=== PATIENT | male | born 1970 | race Caucasian/White ===

== ENCOUNTER 2022-03-05 13:28 | Emergency (ER) | payer OTHER, SELFPAY ==
--- NOTE | ~2022-03-05 | XR_ITS ---
EXAMINATION: XR CHEST CLINICAL INFORMATION: Chest pain COMPARISON: 10/09/2015 TECHNIQUE: 2 views of the chest were obtained. FINDINGS: No focal consolidation, pulmonary edema, or pleural effusion. Stable cardiomediastinal silhouette. XR/XR chest 2V IMPRESSION: No acute cardiopulmonary findings.
[2022-03-05 13:55] VITALS: BP 117/74; PULSE 80; RESP 16; TEMP 36.6; O2SAT 95; BMI 28.8
--- NOTE | 2022-03-05 13:58 | ECG_ITS ---
Test Reason : chest pain Blood Pressure : / mmHG Vent. Rate : 077 BPM Atrial Rate : 077 BPM P-R Int : 148 ms QRS Dur : 098 ms QT Int : 358 ms P-R-T Axes : 043 023 014 degrees QTc Int : 405 ms Normal sinus rhythm Normal ECG When compared with ECG of 09-OCT-2015 20:02, No significant change was found Referred By: Generic ED Physician Electronically Signed By:PAXTON HO
[2022-03-05 14:24] LABS: MANUAL DIFF FLAG NO
[2022-03-05 14:26] LABS: Basophils Absolute Auto 0.1 X10*3/uL (0.0-0.2); Basophils Percent Auto 0.9 % (0-2); Eosinophils Absolute Auto 0.3 X10*3/uL (0.0-0.4); Hematocrit 41.2 % (42.0-52.0); Hemoglobin 13.4 g/dl (14.0-18.0); Imm Gran Abs Auto 0.01 X10*3/uL (0.00-0.03); Imm Gran Pct Auto 0.2 % (0.0-0.4); Lymphocytes Absolute Auto 2.1 X10*3/uL (1.2-4.9); Lymphocytes Percent Auto 39.6 % (20-40); Mean Corpuscular HGB Conc 32.5 g/dl (31.0-36.0); Mean Corpuscular Hemoglobin 28.8 pg (27.0-33.0); Mean Corpuscular Volume 88.4 fL (80.0-98.0); Mean Platelet Volume 12.3 fL (9.4-12.4); Monocytes Absolute Auto 0.4 X10*3/uL (0.1-1.2); Monocytes Percent Auto 8.2 % (2-11); Neutrophils Absolute Auto 2.5 x10*3/uL (2.0-8.3); Neutrophils Percent Auto 46.1 % (45-73); Platelet Count 215 X10*3/uL (160-400); Red Blood Count 4.66 X10*6/uL (4.60-5.80); Red Cell Distribution Width 13.8 % (11.0-16.0); White Blood Count 5.4 X10*3/uL (4.8-10.8)
[2022-03-05 14:48] LABS: Troponin-I High Sensitivity < 3.5 ng/L (<3.5-35.0)
[2022-03-05 14:50] LABS: Alanine Aminotransferase 27 U/L (0-40); Albumin Level 4.1 g/dL (3.5-5.0); Alkaline Phosphatase 44 U/L (39-117); Anion Gap 16 (12-20); Aspartate Amino Transferase 22 U/L (5-37); Bilirubin Direct < 0.2 mg/dL (0.0-0.5); Bilirubin Total < 0.2 mg/dL (0.0-1.0); Blood Urea Nitrogen 19 mg/dL (9-16); Calcium 9.3 mg/dL (8.4-10.2); Carbon Dioxide 24 mmol/L (22-29); Chloride 105 mmol/L (96-108); Creatinine Clr Calc Pharmacy 68.3; Estimated Glomerular Filt Rate 55; Glucose Random 136 mg/dL (60-115); Sodium 141 mmol/L (135-145); Total Protein 6.9 g/dL (6.5-8.0)
== END 2022-03-05 16:40 | disposition left against medical advice (07) ==
PROVIDERS: Emergency Provider Emergency Medicine
DX: R07.9 Chest pain, unspecified (principal); R10.9 Unspecified abdominal pain
CPT/HCPCS: 36415; 71046; 80048; 80076; 84484; 85025; 93005; 99283

== ENCOUNTER 2025-01-11 07:26 | Outpatient (AMB) | payer OTHER, SELFPAY ==
--- OUTSIDE RECORDS SUMMARY | 2025-01-11 07:29 | XMS_ITS | Clinical Summary ---
Author Organization Patient Business Ser [facility] Address [address] [place] [address] Care Team Providers Care Glass Edger Name Role Phone Yoanna Madden MD Primary Care Pr ovider Allergies Active Allergy Reactions Criticality Noted Date Comments Other 06/27/2013 Seasonal Allergies Medications polyethylene glycol (Golytely) 236-22.74-6.74 -5.86 gram solution Take 4L by mouth once for one dose. May substitue any PEG. Starting at 6PM the night before your procedure drink 1 8oz glasses at your own pace until you complete half of the gallon. Finish 2nd half of the gallon 5 hours before your procedure. 4000 mL 5 Active bisacodyL (DULCOLAX) 5 mg EC tablet Take 2 tablets by mouth right before beginning bowel prep. See instructions provided by the office 2 tablet 5 Active Active Problems Problem Noted Date Diagnosed Date Hyperlipidemia 04/08/2022 Pre-diabetes 03/31/2022 Central sleep apnea without Stefan-Singh respir ation 05/01/2019 Pain in joint involving multiple sites 9 Sleep apnea, obstructive 11/06/2015 Overview (05/22/2024): UNTREATED (September 2021) Dx around 2003, not been compliant with CPAP [facility] PSG 01/11/2005 Wt 180# SE 94 REM 16%; RDI 10, REM RDI 14.8, average oxygen saturation 95% (lowest 87%) CPAP titration PSG 11/04/2005 CPAP @ 7 resolved the A[facility] SMS Home Sleep Apnea Test: Date ; Wt 185#; BMI 28; CARIDAD 31, AI 13; HI 18; Unclassified apneas 0; Obstructive apneas 29; Central apneas 47; Mixed apneas 0; hypopneas 105; average oxygen saturation 93% (lowest 84% without saturations <88% for 5% or more of study) - Obstructive Sleep Apnea - severe; mostly hypopneas + central apneas; without sleep related hypoventilation by 2019 home sleep apnea test. Immunizations Name Administration Dates Next Due Influenza trivalent, 0.5mL, preservative free (Fluarix; FluLaval; Fluzone) ages 6mo and older (Afluria) 3 years and older 02/28/2024,02/19/2021,02/22/2019,2017,02/19/2016,06/27/2013 Influenza, Unspecified 03/02/2022,03/24/2014 Tdap Tetanus diptheria acell ular pertussis (Boostrix; Adacel) 7yo and older 02/28/2024,06/27/2013 Surgical History Surgery Date Site/Laterality Comments HERNIA REPAIR PROCEDURE: HISTORICAL HERNIA REPAIR/ING; COMMENT: x2 CHOLECYSTECTOMY PROCEDURE: HISTORICAL CHOLECYSTECTOMY Family History Medical History Relation Name Comments Asthma Brother 1 No Known Problems Brother 2 No Known Problems Brother 3 Asthma Daughter Hypertension Father DM, HLD, [place] at 49, asthma No Known Problems Maternal Grandfather No Known Problems Maternal Grandmother Hypertension Mother DM, asthma No Known Problems Paternal Grandfather Heart attack Paternal Grandmother Relation Name Status Comments Brother 1 Alive Brother 2 Alive Brother 3 Alive Daughter Alive Father Alive Maternal Grandfather Maternal Grandmother Alive Mother Alive Paternal Grandfather Paternal Grandmother Social History Tobacco Use Types Packs/Day Years Used Date Smoking Tobacco: Never Smokeless Tobacco: Never Alcohol Use Standard Drinks/Week Comments Yes 2 (1 standard drink = 0.6 oz pur e alcohol) Sex and Gender Information Value Date Recorded Sex Assigned at Not on file Legal Sex Male 6:07 AM EDT Gender Identity Not on file Sexual Orientation Not on file Obstetrics History Last Filed Vital Signs Vital Sign Reading Time Taken Comments Blood Pressure 110/70 02/28/2024 4:36 PM EDT Pulse 69 02/28/2024 4:36 PM EDT Temperature - - Respiratory Rate - - Oxygen Saturation - - Inhaled Oxygen Concentration - - Weight 92.3 kg (203 lb 8 oz) 02/28/2024 4:36 PM EDT Height 172.7 cm (5' 8 ) 02/28/2024 4:36 PM EDT Body Mass Index 30.94 02/28/2024 4:36 PM EDT Plan of Treatment Health Maintenance Due Date Last Done Comments Hepatitis B Vaccines (1 of 3 - 19+ 3-dose series) 1990 Colorectal Cancer Screening: Colonoscopy 02/05/2021 Social Influencers of Health Screening 02/05/2021 Pneumococcal Vaccine: 50+ Years (1 of 1 - PCV) 2021 Zoster Vaccines (1 of 2) 2021 COVID-19 Vaccine (2 - season) 2024 09/12/2020 Depression Screening 06/07/2024 Influenza Vaccine (#1) 2025 , 03/02/2022, 02/19/2021, Additional history exists Cholesterol Screening (Lipid Panel) 03/30/2027 03/30/2022 DTaP,Tdap,and Td Vaccines (3 - Td or Tdap) 02/27/2034 02/28/2024, 06/27/2013 HIV Screening Completed 06/27/2013 Hepatitis C Screening Completed 06/27/2013 HIB Vaccines Aged Out No longer eligi ble based on patient's age to complete this topic HPV Vaccines Aged Out No longer eligi ble based on patient's age to complete this topic Hepatitis A Vaccines Aged Out No long er eligible based on patient's age to complete this topic IPV Vaccines Aged Out No longer eligi ble based on patient's age to complete this topic MMR Vaccines Aged Out No longer eligi ble based on patient's age to complete this topic Meningococcal ACWY Vaccine Aged Out N o longer eligible based on patient's age to complete this topic Meningococcal B Vaccine Aged Out No l onger eligible based on patient's age to complete this topic RSV Immunization Patients Under 20 months Aged Out No longer eligible based on patient's age to complete this topic Varicella Vaccines Aged Out No longer eligible based on patient's age to complete this topic Procedures Procedure Name Priority Date/Time Associated Diagnosis Comments LIPID PANEL Routine 03/30/2022 HEPATITIS C SCREENING Routine 06/27/2013 HIV SCREENING Routine 06/27/2013 from Last 3 Months or Most Recently Relevant to Health Maintenance Results * (ABNORMAL) Lipid panel (03/30/2022) LDL/HDL Ratio 4 0 - 4 Triglycerides 120 0 - 150 mg/dL Cholesterol 240(A) 0 - 200 mg/dL HDL 57 >=40 mg/dL LDL Cholesterol 159(A) 0 - 100 mg/dL Blood Venous blood specimen / Unknown Historical Provider LAB BLOOD ORDERABLES Vonda l Result * HIV Screening (06/27/2013) HIV Screening Abstracted [facility] Provider HEALTH MAINTENANCE Final Result * Hepatitis C Screening (06/27/2013) Hepatitis C Screening Abstracted Historical Provider HEALTH MAINTENANCE Final Result from Last 3 Months or Most Recently Relevant to Health Maintenance Insurance [facility] Care Teams Glass Edger Relationship Specialty Start Date End Date Yoanna Madden MD [address] [facility], [place] PCP - General Internal Medicine 03/30/22
--- OUTSIDE RECORDS SUMMARY | 2025-01-11 07:29 | XMS_ITS | Patient Health Record ---
Author Organization [facility] Address [address] [place] [id number] Care Team Providers Care Taping Supervisor Name Role Phone Jian Dewitt Unavailable [phone] Reason For Referral No Information Plan Of Treatment No Information
--- OUTSIDE RECORDS SUMMARY | 2025-01-11 07:29 | XMS_ITS ---
Author Name [facility] Organization Unknown Care Team Organization Name Specialty Phone Email Start Date End Da te [facility] Ellie Granados Primary Care 10/12/2022 01/24/20 [facility] Sophia, PROVIDER Primary Care 04/14/202201/05
--- NOTE | 2025-01-11 07:37 | MHC.PC.OV ---
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 Organizational Development Director Required: No Accompanied by: Self / Same As Patient Allergies FRESH FRUIT Allergy (Mild, Uncoded 01/11/25 07:47) ITCHY TROAT Medication List - Last Reconciled 01/11/25 by Petty Prado MD No Known Home Meds Tobacco use date assessed: 01/11/25 Dental Screening Dental Screen Date: 01/11/25 Did you have a dental visit in the last 12 months?: Yes Did you have a dental problem in the last 6 months where you did not have access to dental care?: No Was dental information given to patient?: Patient has dentist HPI HPI Comments History of Present Illness Details The patient is a 54-year-old male presenting for a wellness visit and preventative care. Has never had a colonoscopy. Tdap vaccine placement 2 years ago as per patient. Complains of left foot pain that has been present for about 2 years. No previous trauma. Has mild recurrent major depression with a PHQ-9 of 4 but is able to handle it without counseling or medications. The patient has a history of anemia identified in 2021 during laboratory evaluations. The patient reports no current symptoms related to anemia and maintains normal urinary and bowel functions. Family history is significant for diabetes mellitus and hyperlipidemia, with both parents affected by these conditions. The patient does not smoke and consumes alcohol occasionally, approximately two to three times a week. [facility] Surgical History History of cholecystectomy History of hernia surgery Family History Father Diabetes Hypertension Hypercholesterolemia Mother Diabetes Hypercholesterolemia Social History (Updated 01/11/25 @ 07:51 by Petty Prado MD) Housing: House Alcohol intake: current Alcohol intake frequency: a few times a week Alcohol type: beer Patient Tobacco Use Status: Never used Tobacco e-Cigarette/Vaping Use: Never Used Second Hand Smoke Exposure: No service: No Current occupational status: employed Current occupational exposures/hazards: No Cognitive needs: No Hearing needs: No Vision needs: Yes Questionnaire PHQ-9 Over the last 2 weeks, how often have you been bothered by any of the following problems? 1. Little interest or pleasure in doing things: several days 2. Feeling down, depressed, or hopeless: not at all 3. Trouble falling or staying asleep, or sleeping too much: not at all 4. Feeling tired or having little energy: nearly every day 5. Poor appetite or overeating: not at all 6. Feeling bad about yourself - or that you are a failure or have let yourself or your family down: not at all 7. Trouble concentrating on things, such as reading the newspaper or watching television: not at all 8. Moving or speaking so slowly that other people could have noticed. Or the opposite - being so fidgety or restless that you have been moving around a lot more than usual: not at all 9. Thoughts that you would be better off or of hurting yourself in some way: not at all Total score: 4 Depression Screening Interpretation: Positive Depression Screening Follow-up: Existing condition and Follow-up Visit Requested Depression Screening Done: Yes 61935 - PHQ-9 Billing: Yes Source: Developed by Drs. Jian Anton, Nettie Peres, Marcial Berry and colleagues, with an educational hawa from [employer]. Thrive Questionnaire Date Thrive assessed: 01/11/25 I am a: Patient What is your living situation today?: I have a steady place to live Within the past 12 months, did the food you bought not last and you didn't have the money to get more?: Never true Within the past 12 months, did you worry whether your food would run out before you got money to buy more?: Never true Do you have trouble paying for medicines?: No Do you have trouble getting transportation to medical appointments?: No Do you have trouble paying your heating and electricity bill?: No Do you have trouble taking care of your child, family member or friend?: No Do you have trouble with day-to-day activities such as bathing, preparing meals, shopping, managing finances, etc.?: No Are you currently unemployed and looking for a job?: No Are you interested in more education?: No Please select the resources that you would like help with: None Currently or been in a relationship where the following occur: No concerns reported THRIVE Score: 0 AUDIT C Alcohol Use Questionnaire (AUDIT-C) 1. How often do you have a drink containing alcohol?: 2-3 times a week 2. How many drinks containing alcohol do you have on a typical day when you are drinking?: 3 or 4 3. How often do you have six or more drinks on one occasion?: Never Total Score: 4 JAYESH-7 AMB Questionnaire JAYESH-7 Date JAYESH - 7 assessed: 01/11/25 Feeling nervous, anxious, or on edge: 0 = Not at all Not being able to stop or control worryin = Not at all Worrying too much about different things: 0 = Not at all Trouble relaxin = Not at all Being so restless that it is hard to sit still: 0 = Not at all Becoming easily annoyed or irritable: 0 = Not at all Feeling afraid as if something awful might happen: 0 = Not at all Total JAYESH-7 score (0-4 normal; 5-9 mild; 10-14 moderate; 15-21 severe): 0 Source: Developed by Drs. Jian Anton, Nettie Peres, Marcial Berry and colleagues, with an educational hawa from [employer]. JAYESH-7 Assessment Billing JAYESH-7 Assessment Tool: JAYESH-7 Assessment 61530 Review of Systems Const All systems reviewed & are unremarkable except as noted in HPI and below Card Denies chest pain at rest, Denies chest pain with activity, Denies edema, Denies irregular heart rhythm, Denies claudication, Denies dyspnea, Denies dyspnea on exertion, Denies orthopnea, Denies paroxysmal nocturnal dyspnea and Denies slow heart rate Resp Denies cough, Denies dyspnea and Denies dyspnea on exertion GI Denies abdominal pain, Denies change in bowel habits, Denies excessive flatus, Denies nausea and Denies vomiting Physical exam (Primary Care) Vital Signs: Last Vital Signs BP 110/80 01/11/25 07:38 BMI result Body Mass Index 30.3 Tobacco/Smoking Status: Tobacco use Status Tobacco use date assessed 01/11/25 01/11/25 07:45 Patient Tobacco Use Status Never used Tobacco 01/11/25 07:45 e-Cigarette/Vaping Use Never Used 01/11/25 07:45 PHQ-9: PHQ-9 Score PHQ-9: Total score 4 01/11/25 07:45 Depression Screening Interpretation: Positive Depression Screening Follow-up: Existing condition and Follow-up Visit Requested Thrive Assessment: Date of Thrive Assessment Date Thrive assessed 01/11/25 01/11/25 07:45 Currently or been in a relationship where the following occur: No concerns reported [facility] Head: Yes normal to inspection, Yes normocephalic and Yes atraumatic Ears: external ears normal Eyes General: appearance normal, both eyes and all related structures Eyelids: Yes eyelids normal Conjunctivae: conjunctivae normal Neck Neck: Yes normal visual inspection and Yes supple Resp Effort & Inspection: normal respiratory effort Auscultation: clear to auscultation bilaterally Cardio Jugular venous distension: no JVD Rate: regular rate Rhythm: regular rhythm Heart sounds: S1 normal heart sound present and S2 normal heart sound present GI Inspection: Yes normal to inspection Palpation (GI): Soft to palpation and nontender Auscultation: normal bowel sounds Skin General skin exam: no rashes or lesions noted Neuro General: no focal motor deficits Extrem General: Yes full ROM Psych Appearance: grossly normal Coding Level of Care Code New Pt Level 3 (27745) New Pt Prev Care 40-64y(18008) Diagnoses Physical exam Z00.00 Left foot pain M79.672 Normocytic anemia D64.9 Mild recurrent major depression F33.0 Additional Codes PHQ-9 - 85559 - PHQ-9 Billing: Yes ([id number]) JAYESH-7 Assessment Billing - JAEYSH-7 Assessment Tool: JAYESH-7 Assessment 14396 ([id number]) Time Spent (min) 31 Assessment & Plan Assessment & Plan (1) Physical exam: Code(s): Z00.00 - Encounter for general adult medical examination without abnormal findings Category: Medical (2) Left foot pain: Code(s): M79.672 - Pain in left foot Category: Medical (3) Normocytic anemia: Code(s): D64.9 - Anemia, unspecified Category: Medical (4) Mild recurrent major depression: Code(s): F33.0 - Major depressive disorder, recurrent, mild Category: Medical Plan The plan includes scheduling a colonoscopy for preventative screening, as the patient was unable to complete this last year due to cancellation. Laboratory tests will be repeated to monitor anemia and assess glucose, renal function, liver function, and lipid profile. Patient was informed and verbally consented to the use of an ambient scribe for clinic note documentation during this visit. Orders: Orders XR foot LT 2V Today M79.672 - Pain in left foot Complete Blood Count Auto Diff Today D64.9 - Anemia, unspecified Comprehensive Lodge. Panel Fast Today Z00.00 - Encounter for general adult medical examination without abnormal findings Lipid Panel Today Z00.00 - Encounter for general adult medical examination without abnormal findings IRON PROFILE Today D64.9 - Anemia, unspecified Referrals Podiatry Referral M79.672 - Pain in left foot Open Access Screening Colonoscopy Referral Z00.00 - Encounter for general adult medical examination without abnormal findings, Z12.12 - Encounter for screening for malignant neoplasm of rectum
[2025-01-11 07:38] VITALS: BP 110/80; BMI 30.3
== END 2025-01-11 08:27 | disposition home or self-care (01) ==
LOC: HO.HMCH 07:27
PROVIDERS: Visit Provider Internal Medicine
DX: Z00.00 Encounter for general adult medical examination without abnormal findings (principal); M79.672 Pain in left foot; D64.9 Anemia, unspecified; F33.0 Major depressive disorder, recurrent, mild

== ENCOUNTER 2025-01-11 07:26 | Outpatient (REF) | payer OTHER, SELFPAY ==
--- NOTE | ~2025-01-11 | XR_ITS ---
EXAMINATION: XR FOOT, LEFT CLINICAL INFORMATION: M79.672 - Pain in left foot COMPARISON: None available. TECHNIQUE: AP, lateral, and oblique views of the left foot. FINDINGS: No fracture, dislocation or suspicious bone lesion. Normal alignment. 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 There is normal plantar arch. There is a bone island within the calcaneus. There is a tiny dorsal calcaneal spur. Normal soft tissues. XR/XR foot LT 2V IMPRESSION: 1. No acute bony abnormalities of the left foot. Electronically signed by: Colby Marcum MD 01/11/2025 08:57 AM EDT
[2025-01-11 08:44] LABS: MANUAL DIFF FLAG NO
[2025-01-11 09:03] LABS: Hematocrit 44.1 % (42.0-52.0); Hemoglobin 15.0 g/dl (14.0-18.0); Imm Gran Abs Auto 0.01 X10*3/uL (0.00-0.03); Imm Gran Pct Auto 0.2 % (0.0-0.4); Lymphocytes Absolute Auto 1.3 X10*3/uL (1.2-4.9); Mean Corpuscular HGB Conc 34.0 g/dl (31.0-36.0); Mean Corpuscular Hemoglobin 28.9 pg (27.0-33.0); Mean Corpuscular Volume 85.0 fL (80.0-98.0); NRBC Abs Auto 0.000 X10*3/uL (0.0-0.012); NRBC Pct Auto 0.0 /100WBC (0.0-0.2); Platelet Count 212 X10*3/uL (160-400); Red Blood Count 5.19 X10*6/uL (4.60-5.80); White Blood Count 4.2 X10*3/uL (4.8-10.8)
[2025-01-11 10:06] LABS: Alanine Aminotransferase 30 U/L (0-40); Albumin Level 4.5 g/dL (3.5-5.0); Alkaline Phosphatase 37 U/L (39-117); Anion Gap 11 (12-20); Aspartate Amino Transferase 29 U/L (5-37); Blood Urea Nitrogen 19 mg/dL (9-16); Calcium 9.4 mg/dL (8.4-10.2); Carbon Dioxide 24 mmol/L (22-29); Chloride 109 mmol/L (96-108); Cholesterol 245 mg/dL (<200); Estimated Glomerular Filt Rate > 60; HDL Cholesterol 51 mg/dL (>40); Iron 118 mcg/dL (45-160); Percent Iron Saturation 52 % (15-50); Potassium 4.0 mmol/L (3.3-5.1); Sodium 140 mmol/L (135-145); Total Iron Binding Capacity 225 mcg/dL (228-428); Total Protein 7.2 g/dL (6.5-8.0); Triglycerides 190 mg/dL (<150); Unsaturated Iron Binding 107 ug/dL
== END 2025-01-11 07:27 | disposition home or self-care (01) ==
LOC: HO.LAB 07:26
PROVIDERS: PCP Internal Medicine; Visit Provider Internal Medicine
DX: Z00.00 Encounter for general adult medical examination without abnormal findings (principal); M79.672 Pain in left foot; D64.9 Anemia, unspecified; F33.0 Major depressive disorder, recurrent, mild; Z13.6 Encounter for screening for cardiovascular disorders; Z13.31 Encounter for screening for depression; Z13.39 Encounter for screening examination for other mental health and behavioral disorders
CPT/HCPCS: 36415; 73620; 80053; 80061; 83540; 85025; 96127

== ENCOUNTER → 2025-01-11 08:45 | Outpatient (BNV) | payer OTHER, SELFPAY | PROVIDERS: PCP Internal Medicine; Visit Provider Radiology Diagnostic Radiology | DX: M79.672 Pain in left foot (principal) | CPT/HCPCS: 73620 ==

== ENCOUNTER 2025-02-09 14:36 | Outpatient (AMB) | payer OTHER, SELFPAY ==
--- NOTE | 2025-02-09 11:34 | MHC.OFFVIS ---
Intake Visit Reasons: New Pt- Left foot pain Allergies FRESH FRUIT Allergy (Mild, Uncoded 01/11/25 07:47) ITCHY TROAT PFSH Surgical History History of cholecystectomy History of hernia surgery Family History Father Diabetes Hypertension Hypercholesterolemia Mother Diabetes Hypercholesterolemia Social History (Updated 01/11/25 @ 07:51 by Petty Prado MD) Housing: House Alcohol intake: current Alcohol intake frequency: a few times a week Alcohol type: beer Patient Tobacco Use Status: Never used Tobacco e-Cigarette/Vaping Use: Never Used Second Hand Smoke Exposure: No service: No Current occupational status: employed Current occupational exposures/hazards: No Cognitive needs: No Hearing needs: No Vision needs: Yes Coding
--- NOTE | 2025-02-09 14:38 | A.OFFVIS_ITS ---
Vital Signs 3 02/09/25 14:42 Height 5 ft 8 in Weight 198 lb BMI 30.1 Intake Visit Reasons: New Pt- Left foot pain Intake Note: Jea-nPierre is a 54 year old male who presents today as a new patient for an evaluation for his left foot pain. Patient mentions pain has been going on and off for about 1.5 years. He has tried tylenol,ibuprofen and naproxen for the pain which provided no relief. Allergies FRESH FRUIT Allergy (Mild, Uncoded 01/11/25 07:47) ITCHY TROAT Medication List - Last Reconciled 02/09/25 by Carole Elam DPM atorvastatin (Lipitor) 20 mg PO BEDTIME 90 days diclofenac sodium 1% (Voltaren Arthritis Pain) 4 grams topical QID methylprednisolone (Medrol (Rolf)) PO PER PKG DIR HPI Comments Details: Patient is a 54-year-old male with a past medical history as seen below. Patient presents to the office due to left foot pain. Patient states he has been experiencing pain for 1-1/2 years and denies any inciting injury. He states his pain has recently gotten worse and rates it a 7/10. Patient states he experiences pain to the plantar aspect of the heel, posterior aspect of the heel as well as along the distal aspect of the Achilles, and in the area of the 1st MPJ. Patient states he has tried naproxen ibuprofen and Tylenol with no relief. He states being on his feet and increase activity worsens the pain, rest alleviates the pain. He also states he experiences intermittent stiffness to the ankle. Denies any other pedal concerns. Denies any nausea vomiting fever or chills. [facility] Medical History (Updated 02/09/25 @ 19:59 by Carole Elam DPM) Left Achilles tendinitis Dionicio's deformity of left heel Pes planus of both feet Posterior calcaneal spur of left foot Calcaneal spur, left Plantar fasciitis of left foot Arthritis of first metatarsophalangeal (MTP) joint of left foot Surgical History History of cholecystectomy History of hernia surgery Family History Father Diabetes Hypertension Hypercholesterolemia Mother Diabetes Hypercholesterolemia Social History (Updated 01/11/25 @ 07:51 by Petty Prado MD) Housing: House Alcohol intake: current Alcohol intake frequency: a few times a week Alcohol type: beer Patient Tobacco Use Status: Never used Tobacco e-Cigarette/Vaping Use: Never Used Second Hand Smoke Exposure: No service: No Current occupational status: employed Current occupational exposures/hazards: No Cognitive needs: No Hearing needs: No Vision needs: Yes Review of Systems Const All systems reviewed & are unremarkable except as noted in HPI and below Physical Exam Vital Signs: BMI result Body Mass Index 30.1 Extrem Other: Left lower extremity focused physical exam: Derm: No open lesions abrasions or wounds noted. Skin turgor intact and within normal limits. No interdigital maceration noted. No clinical signs of infection. Vascular: DP/PT pulses palpable. Capillary refill time less than 3 seconds. No varicosities noted. No edema noted. Neuro: Protective sensation is grossly intact. Musculoskeletal: Abnormal gait noted (limping due to pain). Range of motion of the 1st MPJ is within normal limits, but pain noted. Pain on palpation to the 1st MPJ. Pain on palpation to the plantar aspect of the calcaneus along the medial calcaneal tubercle. Negative windlass mechanism. Pain on palpation to the posterior aspect of the calcaneus and the distal aspect of the Achilles tendon along the insertion. No palpable [place] noted. Negative Wooten's test noted. Negative squeeze test. Ankle range of motion within normal limits. Pes planus noted. Ankle/foot/toe images: 2 1. 2. 3. 4. Results Reviewed Results Reviewed: Discussed x-rays with patient. Podiatry read of left foot x-rays: Early stages of arthritis noted to the 1st metatarsophalangeal joint due to joint space narrowing. Posterior calcaneal spur noted consistent with Dionicio's deformity. Kager's triangle intact. Leftfoot 3 view xrays (01/11/25): FINDINGS: No fracture, dislocation or suspicious bone lesion. Normal alignment. 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 There is normal plantar arch. There is a bone island within the calcaneus. There is a tiny dorsal calcaneal spur. Normal soft tissues. IMPRESSION: 1. No acute bony abnormalities of the left foot. Assessment & Plan Assessment & Plan (1) Left foot pain: Code(s): M79.672 - Pain in left foot Category: Medical (2) Arthritis of first metatarsophalangeal (MTP) joint of left foot: Code(s): M19.072 - Primary osteoarthritis, left ankle and foot Category: Medical (3) Plantar fasciitis of left foot: Code(s): M72.2 - Plantar fascial fibromatosis Category: Medical (4) Achilles tendinitis of left lower extremity: Code(s): M76.62 - Achilles tendinitis, left leg Category: Medical (5) Dionicio's deformity of left heel: Code(s): M92.62 - Juvenile osteochondrosis of tarsus, left ankle Category: Medical (6) Calcaneal spur, left: Code(s): M77.32 - Calcaneal spur, left foot Category: Medical (7) Posterior calcaneal spur of left foot: Code(s): M77.32 - Calcaneal spur, left foot Category: Medical (8) Pes planus of both feet: Code(s): M21.41 - Flat foot [pes planus] (acquired), right foot; M21.42 - Flat foot [pes planus] (acquired), left foot Category: Medical Plan Educated patient on diagnoses of flatfoot deformity, plantar fasciitis, Dionicio's deformity, arthritis, and Achilles tendonitis. Discussed both conservative and surgical treatments for these conditions. At this time patient will continue with conservative treatment. Prescribed Voltaren gel to be applied to the left 1st metatarsophalangeal joint PRN for pain. Recommended Super feet [id number] inserts (green color) for pes planus. Provided patient with plantar fascial exercises and instructed patient on how to perform them. Prescribed Medrol Dosepak to be taken as directed. Advised patient to avoid barefoot walking, wear supportive shoe gear, and perform plantar fascial exercises daily. Patient is to return to the office in 2 weeks for re-evaluation. If pain persists we will consider MRI, night splint, injection, and/or physical therapy. Medications: New 2 diclofenac sodium 1% (Voltaren Arthritis Pain) apply to single knee, ankle, foot; for foot includes sole/toes/top of foot 4 grams topical QID 50 grams 0RF arthritic pain in Left foot M19.072 - Primary osteoarthritis, left ankle and foot, M79.672 - Pain in left foot methylprednisolone (Medrol (Rolf)) PO PER PKG DIR 21 ea 0RF plantar fasciitis M72.2 - Plantar fascial fibromatosis, M79.672 - Pain in left foot Coding Level of Care Code New Pt Level 4 (27349) Diagnoses Left foot pain M79.672 Arthritis of first metatarsophalangeal (MTP) joint of left foot M19.072 Plantar fasciitis of left foot M72.2 Achilles tendinitis of left lower extremity M76.62 Dionicio's deformity of left heel M92.62 Calcaneal spur, left M77.32 Posterior calcaneal spur of left foot M77.32 Pes planus of both feet M21.41; M21.42 Time Spent (min) 50
[2025-02-09 14:42] VITALS: BMI 30.1
--- OUTSIDE RECORDS SUMMARY | 2025-02-09 14:51 | XMS_ITS | Clinical Summary ---
Author Organization Patient Business Ser [facility] Address [address] [place] [address] Care Team Providers Care Ground Source Heat Pump Technician Name Role Phone Yoanna Madden MD Primary [...] around 2003, not been compliant with CPAP [facility] PSG 01/11/2005 Wt 180# SE [...] 3 Asthma Daughter Hypertension Father DM, HLD, [place] at 49, asthma No Known Problems Maternal [...] 2021 Zoster Vaccines (1 of 2) 2021 Depression Screening 06/07/2024 COVID-19 Vaccine (2 - 2024- season) 2025 09/12/2020 Influenza Vaccine (#1) 2025 , 03/02/2022, 02/19/2021, [...] * HIV Screening (06/27/2013) HIV Screening Abstracted [facility] Provider HEALTH MAINTENANCE Final Result * Hepatitis C Screening (06/27/2013) Hepatitis C Screening Abstracted Historical Provider HEALTH MAINTENANCE Final Result from Last 3 Months or Most Recently Relevant to Health Maintenance Insurance [facility] Care Teams Ground Source Heat Pump Technician Relationship Specialty Start Date End Date Yoanna Madden MD [address] [facility], [place] PCP - General Internal Medicine 03/30/22
--- OUTSIDE RECORDS SUMMARY | 2025-02-09 14:51 | XMS_ITS | Patient Health Record ---
Author Organization [facility] Address [address] [place] [address] Care Team Providers Care Field Sales Consultant Name Role Phone Jian Dewitt Unavailable [phone] Reason For Referral No Information Plan Of Treatment No Information
== END 2025-02-09 15:25 | disposition home or self-care (01) ==
LOC: HO.HPODS 14:37
PROVIDERS: PCP Internal Medicine; Visit Provider Student in an Organized Health Care Education/Training Program
DX: M79.672 Pain in left foot (principal); M19.072 Primary osteoarthritis, left ankle and foot; M72.2 Plantar fascial fibromatosis; M76.62 Achilles tendinitis, left leg; M92.62 Juvenile osteochondrosis of tarsus, left ankle; M77.32 Calcaneal spur, left foot; M21.41 Flat foot [pes planus] (acquired), right foot; M21.42 Flat foot [pes planus] (acquired), left foot
CPT/HCPCS: 99204

== ENCOUNTER 2025-02-21 14:23 | Outpatient (AMB) | payer OTHER, SELFPAY ==
[2025-02-21 14:31] VITALS: BMI 30.1
--- NOTE | 2025-02-21 14:31 | MHC.OFFVIS ---
Vital Signs 02/21/25 14:31 Height 5 ft 8 in Weight 198 lb BMI 30.1 Intake Visit Reasons: Follow Up Left foot pain Intake Note: Jean-Pierre is a 54 year old male who presents to the office today for a 2 week follow up for his left foot pain. he mentions the exercises have been helping and the pain is improving as well. Patient reports the pain is not as consistent but when he is experiencing his pain it feels sore on the plantar aspect foot. Allergies FRESH FRUIT Allergy (Mild, Uncoded 01/11/25 07:47) ITCHY TROAT Medication List - Last Reconciled 02/21/25 by Carole Elam DPM atorvastatin (Lipitor) 20 mg PO BEDTIME 90 days diclofenac sodium 1% (Voltaren Arthritis Pain) 4 grams topical QID meloxicam 7.5 mg PO DAILY HPI Comments Details: The patient is a 54-year-old male presenting for follow-up of left plantar fasciitis, Achilles tendinitis, Dionicio's deformity, and 1st MPJ arthritis. Patient states he was compliant with at home plantar fascial exercises and completed the Medrol Dosepak course with relief. Patient states after completing the medication he started noticing gradual increase of pain. The pain began on Wednesday with mild discomfort and worsened significantly by Wednesday, affecting the patient's ability to walk. The patient states he has noticed the pain is no longer constant and is intermittent in nature. The patient works on concrete floors and wears steel-toed boots, which also contribute to the discomfort. The patient has not yet acquired insoles for additional support but is considering it for work use. He denies any new inciting injuries. Denies any other pedal concerns. Denies any nausea vomiting fever or chills. [facility] Medical History (Updated 02/09/25 @ 19:59 by Carole Elam DPM) Left Achilles tendinitis Dionicio's deformity of left heel Pes planus of both feet Posterior calcaneal spur of left foot Calcaneal spur, left Plantar fasciitis of left foot Arthritis of first metatarsophalangeal (MTP) joint of left foot Surgical History History of cholecystectomy History of hernia surgery Family History Father Diabetes Hypertension Hypercholesterolemia Mother Diabetes Hypercholesterolemia Social History (Updated 01/11/25 @ 07:51 by Petty Prado MD) Housing: House Alcohol intake: current Alcohol intake frequency: a few times a week Alcohol type: beer Patient Tobacco Use Status: Never used Tobacco e-Cigarette/Vaping Use: Never Used Second Hand Smoke Exposure: No service: No Current occupational status: employed Current occupational exposures/hazards: No Cognitive needs: No Hearing needs: No Vision needs: Yes Review of Systems Const Details: - Musculoskeletal: Gradual increase of pain to the left foot and ankle. All systems reviewed & are unremarkable except as noted in HPI and below Physical Exam Vital Signs: BMI result Body Mass Index 30.1 Extrem Other: Left lower extremity focused physical exam: Derm: No open lesions abrasions or wounds noted. Skin turgor intact and within normal limits. No interdigital maceration noted. No clinical signs of infection. No ecchymosis or erythema noted. Vascular: DP/PT pulses palpable. Capillary refill time less than 3 seconds. No varicosities noted. Temperature gradient warm to warm. Pedal hair present. No edema noted. Neuro: Protective sensation is grossly intact. Musculoskeletal: Range of motion of the 1st MPJ is within normal limits, but mild pain noted. Mild Pain on palpation to the 1st MPJ. Pain on palpation to the plantar aspect of the calcaneus along the medial calcaneal tubercle. Negative windlass mechanism. Pain on palpation to the posterior aspect of the calcaneus and the distal aspect of the Achilles tendon along the insertion, improving in comparison to last visit. No palpable [place] noted. Negative Wooten's test noted. Negative squeeze test. Ankle range of motion within normal limits. Pes planus noted. Results Reviewed Results Reviewed: Discussed x-rays with patient. Podiatry read of left foot x-rays: Early stages of arthritis noted to the 1st metatarsophalangeal joint due to joint space narrowing. Posterior calcaneal spur noted consistent with Dionicio's deformity. Kager's triangle intact. Leftfoot 3 view xrays (01/11/25): FINDINGS: No fracture, dislocation or suspicious bone lesion. Normal alignment. 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 There is normal plantar arch. There is a bone island within the calcaneus. There is a tiny dorsal calcaneal spur. Normal soft tissues. IMPRESSION: 1. No acute bony abnormalities of the left foot. Assessment & Plan Assessment & Plan (1) Left Achilles tendinitis: Code(s): M76.62 - Achilles tendinitis, left leg Category: Medical (2) Plantar fasciitis of left foot: Code(s): M72.2 - Plantar fascial fibromatosis Category: Medical (3) Posterior calcaneal spur of left foot: Code(s): M77.32 - Calcaneal spur, left foot Category: Medical (4) Calcaneal spur, left: Code(s): M77.32 - Calcaneal spur, left foot Category: Medical (5) Left foot pain: Code(s): M79.672 - Pain in left foot Category: Medical (6) Dionicio's deformity of left heel: Code(s): M92.62 - Juvenile osteochondrosis of tarsus, left ankle Category: Medical (7) Arthritis of first metatarsophalangeal (MTP) joint of left foot: Code(s): M19.072 - Primary osteoarthritis, left ankle and foot Category: Medical (8) Pes planus of both feet: Code(s): M21.41 - Flat foot [pes planus] (acquired), right foot; M21.42 - Flat foot [pes planus] (acquired), left foot Category: Medical Plan Patient was informed and verbally consented to the use of an ambient scribe for clinic note documentation during this visit. I discussed with the patient the use of Meloxicam for pain management, emphasizing its role in reducing inflammation and pain now that the course of Medrol Dosepak has been completed. I explained the function and benefits of the night splint, including its role in maintaining a dorsiflexed foot/ankle position during sleep to aid in continuous stretching. We talked about the potential need for a cortisone injection if pain persists, noting the associated downtime and discomfort. I advised the patient to consider insoles for additional support (Superfeet green color), particularly given his work conditions on concrete floors. I recommended an MRI if symptoms do not improve, to rule out deeper issues such as ligament tears. 1. Left Plantar fasciitis/ Achilles tendinitis - Prescribed meloxicam for pain management, to be taken as needed for severe pain. - Provided patient with a night splint to maintain foot position during sleep, aiding in continuous stretching. - Advised continuation of stretching exercises to alleviate pain. - Discussed potential for cortisone injection and MRI if pain does not improve, with physical therapy as a subsequent option. 2. Left 1st MPJ arthritis - Continue use of Voltaren gel. 3. Pes Planus - Advised patient to use OTC insoles (Superfeet green color). Advised patient to avoid barefoot walking, wear supportive shoe gear, and perform plantar fascial exercises daily. Patient is to return to the office in 3 weeks for re-evaluation. If pain persists we will consider MRI, injection, and/or physical therapy. Medications: New meloxicam 7.5 mg PO DAILY 30 tabs 0RF Plantar Fasciitis & Achilles tendinitis M19.072 - Primary osteoarthritis, left ankle and foot, M21.41 - Flat foot [pes planus] (acquired), right foot, M21.42 - Flat foot [pes planus] (acquired), left foot, M72.2 - Plantar fascial fibromatosis, M76.62 - Achilles tendinitis, left leg, M77.32 - Calcaneal spur, left foot, M79.672 - Pain in left foot, M92.62 - Juvenile osteochondrosis of tarsus, left ankle Coding Level of Care Code Est Pt Level 4 (37054) Diagnoses Left Achilles tendinitis M76.62 Plantar fasciitis of left foot M72.2 Posterior calcaneal spur of left foot M77.32 Calcaneal spur, left M77.32 Left foot pain M79.672 Dionicio's deformity of left heel M92.62 Arthritis of first metatarsophalangeal (MTP) joint of left foot M19.072 Pes planus of both feet M21.41; M21.42 Time Spent (min) 45
--- OUTSIDE RECORDS SUMMARY | 2025-02-21 18:08 | XMS_ITS | Patient Health Record ---
Author Organization [facility] Address [address] [place] [id number] Care Team Providers Care Vehicle Technician Name Role Phone Jian Dewitt Unavailable [phone] Reason For Referral No Information Plan Of Treatment No Information
== END 2025-02-21 14:52 | disposition home or self-care (01) ==
LOC: HO.HPODS 14:24
PROVIDERS: PCP Internal Medicine; Visit Provider Student in an Organized Health Care Education/Training Program
DX: M76.62 Achilles tendinitis, left leg (principal); M72.2 Plantar fascial fibromatosis; M77.32 Calcaneal spur, left foot; M79.672 Pain in left foot; M92.62 Juvenile osteochondrosis of tarsus, left ankle; M19.072 Primary osteoarthritis, left ankle and foot; M21.41 Flat foot [pes planus] (acquired), right foot; M21.42 Flat foot [pes planus] (acquired), left foot
CPT/HCPCS: 99214

== ENCOUNTER 2025-06-06 08:48 | Outpatient (AMB) | payer OTHER, SELFPAY ==
--- OUTSIDE RECORDS SUMMARY | 2025-06-06 08:53 | XMS_ITS | Patient Health Record ---
Author Organization [facility] Address [address] [place] [address] Care Team Providers Care Crossbar Frame Wirer Name Role Phone KAYLI ALEX MD Primary Care Provider ANNELISE Johnson Unavailable [phone] KAYLI ALEX MD Unavailable Unavailable Reason For Referral No Information Medications Medication SIG (Take, Route, Fr equency, Duration) Notes Start Date End Date Status Meloxicam 15 MG Tablet 1 tab(s) orally o nce a day; Duration: 30 day(s) 08/23/2018 Active Social History Tobacco Use: Social History Observation Description Date Details (start date - stop date) Never Smoker NA - NA Social History Tobacco Use: Social Info Question Answer Notes Smoking Are you a: never smoker Additional Details Category Social Info Options Details General Occupation: [employer] pers[employer] alcohol use: yes occ drug use: no Hobbies/Exercise habits: billard s,gym workout 3 times a week Coffee/Tea/Soda: yes 2 cups of coffe e daily, no tea ,no soda Marital Status smokers in household no Problems Problem Type SNOMED Code ICD Code Onset Dates Problem Status W/U Status Risk Notes Problem Primary osteoarthritis (532471082) Primary osteoarthritis involving multiple joints (M15.0) Active confirmed Plan Of Treatment No Information Insurance Providers Payer Name Payer Address Payer Phone Subscriber Number Group Number Insured Name Patient Relationship to Insured Coverage Start Date Coverage End Date [employer] [address] [place], [place] [id number] Spouse - patient is the spouse of the insured Medical (General) History Surgical History Surgery Date(Month/Year) [place] 2 hernia repairs 1993, 1998 Hospitalization History Reason Date(Month/Year) chest pain ([facility]) 2006
--- OUTSIDE RECORDS SUMMARY | 2025-06-06 08:53 | XMS_ITS | Data Portability ---
Author Organization TIM Rodrigo Roe [facility] Address [address] [place] [address] Support Name Relationship Address Phone JEAN-PIERRE CHATTERJEE self [address], [place] Assessment Encounter Date Assessment Date Assessment LastModified by Organization Details LastModified Time 05/05/2024 05/05/2024 53-year-old pjtju-facb-jcsk nant male who suffered an injury to the right small finger proximal phalanx on April 27, 2024 with findings consistent with a mildly dorsally angulated right small finger proximal phalanx fracture. I reviewed conservative treatment with the patient today. Recommended ulnar gutter splint, and I assisted with molding the splint to ensure that his MP joints were at 90 degrees, and IP joints extended. Instructed to leave this in place and to not remove his splint. Follow-up in 7 to 10 days time to recheck on his alignment, sooner if required. [email or web address] Not available 05/05/2024 09:08:22 Plan of Treatment Reminders Order Date Submit Date Provider Name Organization Details Last Modified By Last Modified Time Details Appointments None record ed. Lab None record ed. Referral None record ed. Procedures None record ed. Surgeries None record ed. Imaging XR, finger (s), 2 or more view 08:34:3 2 [facility] [address], [place], [address], [facility] 4 15:21:55 MedicationOrders None record ed. VaccineOrders None record ed. Patient TargetsNo targets recorded. Patient Instructions Encounter Date Encounter Id Patient Instructions Last Modified By Organization Details Last Modified Time 05/05/[id number] application of cast, ulnar gutter* Geoffrey Aquino PA-C Not available 05/05/2024 10:10:19 Reason for Referral None Reported. Results Created Date Observation Date Name Description Value Unit Range Abnormal Flag Specimen Type Note LastModifiedBy Organization Detail LastModifiedTime 04/28/2024 04/28/2024 XR, hand No observation recorded. AAKASH QUIROGA [facility] , [address] , [place] , [address], , 05/01/2024 15:52:09 05/05/2024 05/05/2024 finger( s) 2 views [email or web address] ncrypted=Juan VinsonKeqCW8eHrlKUk 6g%2BXZwaYqta q0bqfl%2Fg9IQ m7xxIhaJ9qNnU SpjmMh1UqAKMy JcnIUK6gDgDJl qg81c9595HE7U qaXiCWKOnKiQt rMwF Not Available [facility] , [address] , [place] , [address], , 05/05/2024 08:46:36 05/05/2024 05/05/2024 finger( s) 2 views [email or web address] ncrypted=Juan FernandezHfkOM5fYhmJRe 6g%2BXZwaYqta q0bqfl%2Fg9IQ a9qeZaaO8wKfM AjpcHf6HrZAGu PkiJAJ0cMzIMj on79y8217BU2P qaXiCWKOnKiQt rMwF Not Available [facility] , [address] , [place] , [address], , 05/05/2024 08:46:38 05/05/2024 05/05/2024 finger( s) 2 views [email or web address] ncrypted=Juan FernandezLqbVM2pKbfBSy 6g%2BXZwaYqta q0bqfl%2Fg9IQ y7ozUnmS9nAgV KfudPc9WlAXVr VkwQKF3pLjWNy ff75y7576WN6M qaXiCWKOnKiQt rMwF Not Available [facility] , [address] [address] , [place] , [address], , 05/05/2024 08:51:54 05/05/2024 05/05/2024 finger( s) 2 views [email or web address] ncrypted=Juan FernandezKipGX0eDykHQt 6g%2BXZwaYqta q0bqfl%2Fg9IQ w0ctDfnH4wZbC IkyiYr9FdUBTx WrsHAM3mVgWLv vs82i0956OH6D qaXiCWKOnKiQt rMwF Not Available [facility] , [address] , [place] , [address], , 05/05/2024 08:51:56 Result Notes Documentation Provider Name and Address Organization Details Recorded Time Xr, Finger(s), 2 Or More View : [email or web address]? Encrypted=xxAbKjhMM8vBxfN Uv6g%3UHUnfIfrjg6fhan%2Fg 4DLi7ivLdmW9oFyBIiuzLo4Bh LNZoTokUYU3vRyRZaze29t566 8KF9PoqZhPKDKoAvMvwIbK Not Available [facility] 05/05/2024 08:46: 36 Xr, Finger(s), 2 Or More View : [email or web address]? Encrypted=ztLzLaeCT4gBdqR Uv6g%1VKKbgUyxaq3wqel%2Fg 8BLd8keHqfO1dGuVYinwZl0Ha PMXwDbeUJF9kFdAMkyj80a303 8NH0JkxRnDQDQrMhCidHzI Not Available [facility] 05/05/2024 08:46: 38 Xr, Finger(s), 2 Or More View : [email or web address]? Encrypted=vrYhYftRX1nGqlY Uv6g%1HKWsvIoyfx0vdkh%2Fg 2HTf8kyYvjG2nDiHVmunVc7Xt ZRMkTvlXBN2kMkAIvrm51e561 4LI6NsmHcTEPXuAjKpvOsL Not Available [facility] 05/05/2024 08:51: 54 Xr, Finger(s), 2 Or More View : [email or web address] Encrypted=vzEqLtbLI4aNmqS Uv6g%6FAAdeRkmir8fjgl%2Fg 2GLh5puOlbH3fHjQQmvjIi9Lj CINaSvwLGX9nTwHEjso72f552 2DE4DnhLrKRGLlZiMgzSfF Not Available [facility] 05/05/2024 08:51: 56 Problems Name Problem SNOMED Code Status Onset Date Resolution Date Notes Provider Name and Address Organization Details Recorded Time Closed fracture of proximal phalanx of little finger 306800073 Active 024 Geoffrey Aquino PA-C [address], [facility] [place], [address] , [place] [facility] 07:45:38 Problem Notes None recorded. Procedures Surgical History Date Name Laterality Status Provider Name and Address Organization Details Recorded Time Other completed sudheer Beard [facility] 05/05/2024 08:35:29 Imaging Results Imaging Date Name Status LastModifiedBy Organiza tion Detail LastModifiedTime 04/28/2024 XR, hand completed AAKASH QUIROGA [facility] , [address] , [place] , [address], [place] , 05/01/2024 15:52:09 05/05/2024 finger(s) 2 views completed Not Available [facility] , [address] , [place] , [address], [place] , 05/05/2024 08:46:36 05/05/2024 finger(s) 2 views completed Not Available [facility] , [address] , [place] , [address], [place] , 05/05/2024 08:46:38 05/05/2024 finger(s) 2 views completed Not Available [facility] , [address] , [place] , [address], [place] , 05/05/2024 08:51:54 05/05/2024 finger(s) 2 views completed Not Available [facility] , [address] , [place] , [address], [place] , 05/05/2024 08:51:56 Procedure Notes None recorded. Medical Equipment None Reported. Vitals None Recorded Social History Question Answer Notes LastModified by Organizat ion Details LastModified Time Tobacco Smoking Status Never Smoker sudheer guillaume [facility] 05/05/2024 08:35:25 How Many Times Per Week Do You Consume Alcohol? 3-4 Times Per Week sudheer guillaume [facility] 05/05/2024 08:35:25 What is your relationship status? sudheer guillaume [facility] 05/05/2024 08:35:25 How many years have you smoked tobacco? 0 sudheer guillaume [facility] 05/05/2024 08:35:25 Social History Observation Description Date Observed Sex Unknown 12/04/2024 Legal Sex Male Status Not (finding) 06/06/20 25 No social history survey screeners recorded No social history SDOH screeners recorded Functional Status Question Answer Note LastModified by Organizat ion Details LastModified Time Do you or have you ever used any other forms of tobacco or nicotine? No sudheer guillaume [facility] 05/05/2024 08:35:25 Do you or have you ever used e-cigarettes or vape? Never used electronic cigarettes sudheer guillaume [facility] 05/05/2024 08:35:25 How many times per week do you consume alcohol? 3-4 times per week sudheer guillaume [facility] 05/05/2024 08:35:25 Do you use any illicit or recreational drugs? No sudheer guillaume [facility] 05/05/2024 08:35:25 No Functional Screening assessment recorded No Functional SDOH screeners recorded Mental Status None recorded. No Mental Screening assessment recorded No Mental SDOH screeners recorded Family History Nothing Reported. Medical History No medical history recorded. Past Encounters Encounter ID Performer Location Encounter Start Date Encounter Closed Date Diagnosis/Indication Diagnosis SNOMED-CT Code Diagnosis ICD10 Code Diagnosis IMO Codes Diagnosis Note [id number] [facility] [address] [place] [address] 05/05/2024 08:22:13 06/06/2024 15:21:55 Closed fracture of proximal phalanx of little finger 539318418 S62.616A [id number] Health Concerns Section Related Observation LastModified by Organization Detai ls LastModified Time None Recorded Concern Status LastModified by Organization Details LastModified Time None Recorded SDOH Concern Status LastModified by Organization [facility]unc health rex LastModified Time None Recorded Advance Directives Directive None Recorded Payers Insurance Date Sequence Insurance Name Policy Number Policy Wagner Covered Member ID Wagner Member ID Guarantor Name 05/15/[address] [place] [address] [id number] Picacho Sen [id number] Jean-Pierre Chatterjee Notes Date Note Type Note Provider Name and Address Organization Details Recorded Time 05/05/2024 text/html ROS as noted in the HPI I am seeing this patient under the supervision of Dr. Cobos who was available but who did not see the patient Attending: Dr. Rodriguez Complaint: Digit triage: Right fifth proximal phalanx fracture sustained on April 27, 2024 HPI: 53-year-old vijat-wnbg-oahhags t male presents today reporting that he punched a wall with a right close fist on April 27, 2024 injuring his right small finger. He was evaluated in urgent care facility where he found to have a proximal phalanx fracture. He was placed in an ulnar gutter splint for which she removed. He reports some moderate pain. Presents today for evaluation Geoffrey Aquino PA-C [address], [place], [address], [facility] [place] [facility] 05/05/2024 09:08:34 Care Team Name Role Member ID Specialty Address Phone None Recorded.
--- OUTSIDE RECORDS SUMMARY | 2025-06-06 08:53 | XMS_ITS | Clinical Summary ---
Author Organization Patient Business Ser [facility] Address [address] [place] [address] Care Team Providers Care Mobile Heavy Equipment Operator Name Role Phone Yoanna Madden MD Primary [...] around 2003, not been compliant with CPAP [facility] PSG 01/11/2005 Wt 180# SE [...] central apneas; without sleep related hypoventilation by 2018 home sleep apnea test. Immunizations Immunization Administration Dates Next Due Influenza trivalent, 0.5mL, [...] 3 Asthma Daughter Hypertension Father DM, HLD, [place] at 49, asthma No Known Problems Maternal [...] on file Sexual Orientation Not on file Last Filed Vital Signs Vital Sign Reading [...] Health Maintenance Due Date Last Done Comments Colorectal Cancer Screening: Colonoscopy 1971 Hepatitis B Vaccines (1 of 3 - 19+ 3-dose series) 1990 Social Influencers of Health Screening 02/05/2021 Pneumococcal Vaccine: 50+ Years (1 of 1 - PCV) 2021 Zoster Vaccines (1 of 2) 2021 Depression Screening 06/07/2024 COVID-19 Vaccine (2 - 2024- season) 2025 09/12/2020 Influenza Vaccine (#1) 2025 , 03/02/2022, 02/19/2021, Additional history exists Cholesterol Screening (Lipid Panel) 03/30/2027 03/30/2022 DTaP,Tdap,and Td Vaccines (3 - Td or Tdap) 02/27/2034 02/28/2024, 06/27/2013 RSV Immunization Adult Patients (1 - 1-dose 75+ series) 2046 HIV Screening Completed 06/27/2013 Hepatitis C Screening [...] mg/dL Blood Venous blood specimen / Unknown [facility] Provider LAB BLOOD ORDERABLES Vonda l Result * HIV Screening (06/27/2013) HIV Screening Abstracted [facility] Provider HEALTH MAINTENANCE Final Result * Hepatitis C Screening (06/27/2013) Hepatitis C Screening Abstracted Historical Provider HEALTH MAINTENANCE Final Result from Last 3 Months or Most Recently Relevant to Health Maintenance Insurance [facility] Care Teams Mobile Heavy Equipment Operator Relationship Specialty Start Date End Date Yoanna Madden MD [address] [place] [address] PCP - General Internal Medicine 03/30/22
--- OUTSIDE RECORDS SUMMARY | 2025-06-06 08:54 | XMS_ITS | Patient Health Record ---
Author Organization [facility] Address [address] [place] [address] Care Team Providers Care Manager Client Name Role Phone Dewitt Jian Unavailable [phone] Reason For Referral No Information Plan Of Treatment No Information
[2025-06-06 09:06] VITALS: BP 120/86; PULSE 67; RESP 18; O2SAT 97; BMI 31.3
--- NOTE | 2025-06-06 09:06 | A.OFFPC_ITS ---
Vital Signs 06/06/25 09:06 Height 5 ft 8 in Weight 206 lb BMI 31.3 BP 120/86 Blood Pressure Location Lt brachial Position Sitting Respiration 18 Pulse 67 Pulse Source Pulse Oximeter Temp Source Temporal Artery Scan Pulse Oximetry (%) 97 Oxygen Delivery Method Room Air Intake Visit Reasons: [facility] 06/01 Mass on LT side of chest Radiology Nurse Required: No Accompanied by: Self / Same As Patient Allergies FRESH FRUIT Allergy (Mild, Uncoded 01/11/25 07:47) ITCHY TROAT Medication List - Last Reconciled 06/06/25 by Anneliese Webb MD atorvastatin (Lipitor) 20 mg PO BEDTIME 90 days bisacodyl (Dulcolax (bisacodyl)) 20 mg (4 x 5 mg) PO ONCE 1 day diclofenac sodium 1% (Voltaren Arthritis Pain) 4 grams topical QID pantoprazole 40 mg PO DAILY polyethylene glycol 3350 (Miralax) 238 grams PO ONCE 1 day Tobacco use date assessed: 06/06/25 Dental Screening Dental Screen Date: 06/06/25 Did you have a dental visit in the last 12 months?: Yes Did you have a dental problem in the last 6 months where you did not have access to dental care?: No Was dental information given to patient?: Patient has dentist HPI HPI Comments History of Present Illness Details Patient is a 54-year-old male with hyperlipidemia presenting for emergency department visit follow up. He had presented to the emergency department on 06/02/2025 for evaluation of the chest pain, with a palpable lump that he can feel in the tender area, pain worsening with cough and movement and upon touch of the lump, that has progressively worsened over the past month. Had EKG and troponin that was negative. Chest x-ray was unremarkable without acute bony abnormality or active disease in the chest. CT chest without contrast shows no acute abnormalities. Symptoms are attributed to musculoskeletal etiology and Patient was treated with ketorolac and discharged from ED. The patient reports the chest pain has been present intermittently for about a month and a half. Prior to his ED visit, the pain was constant and described as a sore pain, exacerbated by coughing, deep breaths, and certain movements. Since receiving a pain injection in the ED, the pain has been improving and is now very light, primarily occurring with coughing. He denies any shortness of breath or palpitations. The patient's current medications include atorvastatin 20 mg and pantoprazole 40 mg for heartburn. He also reports taking his mother's naproxen that helps with his arthritis pain. [facility] Medical History Left Achilles tendinitis Dionicio's deformity of left heel Pes planus of both feet Posterior calcaneal spur of left foot Calcaneal spur, left Plantar fasciitis of left foot Arthritis of first metatarsophalangeal (MTP) joint of left foot Surgical History History of cholecystectomy History of hernia surgery Family History Father Diabetes Hypertension Hypercholesterolemia Mother Diabetes Hypercholesterolemia Social History Housing: House Alcohol intake: current Alcohol intake frequency: a few times a week Alcohol type: beer Patient Tobacco Use Status: Never used Tobacco e-Cigarette/Vaping Use: Never Used Second Hand Smoke Exposure: No service: No Current occupational status: employed Current occupational exposures/hazards: No Cognitive needs: No Hearing needs: No Vision needs: Yes Questionnaire Thrive Questionnaire Date Thrive assessed: 06/06/25 I am a: Patient What is your living situation today?: I have a steady place to live Within the past 12 months, did the food you bought not last and you didn't have the money to get more?: Never true Within the past 12 months, did you worry whether your food would run out before you got money to buy more?: Never true Do you have trouble paying for medicines?: No Do you have trouble getting transportation to medical appointments?: No Do you have trouble paying your heating and electricity bill?: No Do you have trouble taking care of your child, family member or friend?: No Do you have trouble with day-to-day activities such as bathing, preparing meals, shopping, managing finances, etc.?: No Are you currently unemployed and looking for a job?: No Are you interested in more education?: No Currently or been in a relationship where the following occur: No concerns reported THRIVE Score: 0 JAYESH-7 AMB Questionnaire JAYESH-7 Date JAYESH - 7 assessed: 01/11/25 Source: Developed by Drs. Jian Anton, Nettie Peres, Marcial Berry and colleagues, with an educational hawa from [employer]. Physical exam (Primary Care) Vital Signs: Last Vital Signs Pulse 67 06/06/25 09:06 Resp 18 06/06/25 09:06 BP 120/86 06/06/25 09:06 Pulse Ox 97 06/06/25 09:06 Oxygen Delivery Method Room Air 06/06/25 09:06 General: Well-appearing, alert, oriented ?3, in no acute distress. Cardiovascular: RRR, S1-S2 appreciated, no murmurs, rubs or gallops. Respiratory: Lungs clear to auscultation bilaterally, no wheezes, rales or rhonchi. Abdomen: Soft, nontender, nondistended. Normoactive bowel sounds. a very tiny bump is palpated on the left chest just medial to midclavicular line and nipple area, slightly tender to touch BMI result Body Mass Index 31.3 Tobacco/Smoking Status: Tobacco use Status Tobacco use date assessed 06/06/25 06/06/25 09:16 Patient Tobacco Use Status Never used Tobacco 06/06/25 09:16 e-Cigarette/Vaping Use Never Used 06/06/25 09:16 Thrive Assessment: Date of Thrive Assessment Date Thrive assessed 06/06/25 06/06/25 09:16 Currently or been in a relationship where the following occur: No concerns reported Coding Level of Care Code Est Pt Level 4 (58459) Diagnoses Chest pain, unspecified type R07.9 Chest pain type: unspecified Primary osteoarthritis, unspecified site M19.91 Osteoarthritis location: unspecified site Osteoarthritis type: primary Assessment & Plan Assessment & Plan (1) Chest pain: Code(s): R07.9 - Chest pain, unspecified Qualifiers: Chest pain type: unspecified Qualified Code(s): R07.9 - Chest pain, unspecified (2) Osteoarthritis: Code(s): M19.90 - Unspecified osteoarthritis, unspecified site Qualifiers: Osteoarthritis location: unspecified site Osteoarthritis type: primary Qualified Code(s): M19.91 - Primary osteoarthritis, unspecified site Plan As per HPI, patient's symptoms are suggestive of a musculoskeletal etiology or inflammatory origin such as costochondritis, with negative cardiac workup, chest x-ray and chest CT in the ED. Pain responded to ketorolac given in the ED, after which pain has essentially resolved. May feel slight soreness with coughing and that tiny chest wall bump area. But denies any other chest pain, shortness of breath, palpitations or dizziness. Continue to monitor the area for any changes, advised to return if mass grows or the pain worsens. Patient also with history of arthritis, for which he uses diclofenac gel as needed or naproxen that helps. Prescription for naproxen 500 mg twice daily as needed sent to pharmacy. Patient advised to avoid mixing with other NSAIDs while on naproxen as it increases risk of GI bleed and kidney injury. Take with food and a glass of water. Medications: New naproxen 500 mg PO BID PRN 30 tabs 0RF pain
== END 2025-06-06 09:37 | disposition home or self-care (01) ==
LOC: HO.HMCH 08:49
PROVIDERS: PCP Internal Medicine; Visit Provider Student in an Organized Health Care Education/Training Program
DX: R07.9 Chest pain, unspecified (principal); M19.91 Primary osteoarthritis, unspecified site